=== PATIENT | male | born 2005 | race Hispanic/Latino ===

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

== ENCOUNTER 2025-04-22 19:22 | Emergency (ER) | payer SELFPAY | END 2025-04-22 20:35 | disposition home or self-care (01) | LOC: CSHERS 19:22 | DX: S93.401A Sprain of unspecified ligament of right ankle, initial encounter (principal); S93.402A Sprain of unspecified ligament of left ankle, initial encounter; X50.9XXA Other and unspecified overexertion or strenuous movements or postures, initial encounter; Y93.39 Activity, other involving climbing, rappelling and jumping off | CPT/HCPCS: 99283 ==

== ENCOUNTER 2025-07-23 14:11 | Emergency (ER) | payer SELFPAY | END 2025-07-23 16:11 | disposition left against medical advice (07) | LOC: CSHERS 14:11 | DX: Z53.21 Procedure and treatment not carried out due to patient leaving prior to being seen by health care provider (principal) ==